=== PATIENT | male | born 1965 | race Caucasian/White ===

== ENCOUNTER 2024-02-22 14:11 | Emergency (ER) | payer OTHER ==
[2024-02-22 15:01] LABS: #Basophils 0.03 10x3/uL (0.0-0.2); %Basophils 0.3 % (0.0-1.0); %Eosinophils 0.8 % (0.0-10.0); %Lymphocytes 12.4 % (21.0-51.0); %Monocytes 6.2 % (0.0-10.0); %Neutrophils 79.8 % (42.0-75.0); Hematocrit 48.3 % (42.0-52.0); Hemoglobin 16.9 g/dL (14.0-18.0); Mean Corpuscular Volume 85.6 fL (78.0-98.0); Mean Platelet Volume 8.7 fL (7.4-10.4); Platelet Count 261 10x3/uL (130-400); RBC Distribution Width 12.6 % (11.5-14.5); Red Blood Cell (RBC) Count 5.64 mill/uL (4.70-6.10)
[2024-02-22 15:19] LABS: ALT (SGPT) 24 U/L (8-55); AST (SGOT) 26 U/L (5-34); Albumin 3.8 g/dL (3.5-5.0); Alkaline Phosphatase 58 U/L (40-110); Anion Gap 13 mmol/L (10-20); BUN (Urea Nitrogen) 19 mg/dL (8.4-25.7); Bilirubin, Total 0.7 mg/dL (0.2-1.2); Calc. Creatinine Clearance 0 mL/min (70-130); Calcium 9.1 mg/dL (7.8-10.44); Carbon Dioxide 23 mmol/L (22-29); Chloride 106 mmol/L (98-107); Estimated GFR 70; Globulin 2.7 g/dL (2.4-3.5); Glucose 118 mg/dL (70-105); Lipase 21 U/L (8-78); Potassium 3.5 mmol/L (3.5-5.1); Protein, Total 6.5 g/dL (6.0-8.3); Sodium 138 mmol/L (136-145)
[2024-02-22 15:25] LABS: Troponin I Less than 0.010 ng/mL (< 0.028)
[2024-02-22 18:32] LABS: Troponin I Less than 0.010 ng/mL (< 0.028)
== END 2024-02-22 19:12 | disposition home or self-care (01) ==
LOC: ERS 14:11
DX: R00.2 Palpitations (principal); F17.220 Nicotine dependence, chewing tobacco, uncomplicated; I48.91 Unspecified atrial fibrillation; Z79.01 Long term (current) use of anticoagulants
CPT/HCPCS: 36415; 71045; 80053; 83690; 84484; 85025; 93005; 94760